=== PATIENT | male | born 1955 | race Caucasian/White ===

== ENCOUNTER 2019-12-17 12:37 | Emergency (ER) | payer SELFPAY ==
[~2019-12-17] VITALS: Ht 177.8 cm; Wt 86.4 kg
[2019-12-17 12:41] VITALS: BP 124/69
[2019-12-17] MEDS ORDERED: acetaminophen 325mg tablet PO ONE (13:05)
== END 2019-12-17 13:23 | disposition home or self-care (01) ==
LOC: ER 12:38
DX: G89.29 Other chronic pain (principal); Z76.5 Malingerer [conscious simulation]; R55 Syncope and collapse; Z59.0 Homelessness
CPT/HCPCS: 99283